=== PATIENT | female | born 1985 | race Caucasian/White ===

== ENCOUNTER 2020-08-15 08:22 | Emergency (ER) | payer MEDICAID ==
--- NOTE | 2020-08-15 08:27 | ED Physician Documentation ---
PD HPI HEENT - Stated complaint Stated Complaint: EAR PX/DIZZY - History obtained from History obtained from: Patient - History of Present Illness Timing - onset: How many days ago (few) Timing - duration: Days Timing - details: Gradual onset, Still present Location: Right ear Associated symptoms: Congestion, Other (had had episodes of vertigo for several weeks or more. Worse with getting up in mornings. The past few days had had worse dizziness with feeling of congestion, right ear fullness, and some sore throat.). No: Fever Recently seen: Not recently seen Review of Systems Constitutional: denies: Fever, Chills Ears: reports: Ear pain, Other (vertigo). denies: Tinnitus/ringing Nose: reports: Rhinorrhea / runny nose, Congestion Throat: reports: Sore throat Respiratory: denies: Cough GI: reports: Nausea. denies: Vomiting, Diarrhea Skin: denies: Rash Neurologic: denies: Focal weakness, Altered mental status, Headache PD PAST MEDICAL HISTORY - Past Medical History Cardiovascular: None Respiratory: None Neuro: None Endocrine/Autoimmune: None - Present Medications Home Medications: Ambulatory Orders Medication Instructions Recorded Confirmed Amoxicillin 500 mg PO TID #18 capsule 08/15/20 Cetirizine [ZyrTEC] 10 mg PO DAILY #30 tablet 08/15/20 Famotidine [Pepcid] 20 mg PO DAILY #30 tablet 08/15/20 Meclizine [Antivert] 25 mg PO Q6H PRN #30 tablet 08/15/20 Sertraline HCl [Zoloft] 100 mg PO 08/15/20 chlordiazePOXIDE [Librium] 25 mg PO Q6H PRN #20 capsule 08/15/20 dexAMETHasone [Decadron] 4 mg PO DAILY #6 tablet 08/15/20 - Allergies Allergies/Adverse Reactions: Allergies Allergy/AdvReac Type Severity Reaction Status Date / Time No Known Drug Allergies Allergy Verified 08/15/20 08:35 - Living Situation Living Situation: reports: With spouse/s.o. Living Arrangement: reports: At home - Social History Does the pt smoke?: No Does the pt drink ETOH?: Yes ETOH Use: Wine, Liquor, Other (daily and states large amount; is going to go into alcohol treatment later next week. ) PD ED PE NORMAL - Vitals Vital signs reviewed: Yes - General General: Alert and oriented X 3, No acute distress, Well developed/nourished - HEENT HEENT: PERRL, EOMI (some nystagmus to the right), Moist mucous membranes, Pharynx benign. No: Ears normal (left is okay; right with fullness and some redness behing TM. ) - Neck Neck: Supple, no meningeal sign - Cardiac Cardiac: RRR, No murmur - Respiratory Respiratory: Clear bilaterally - Abdomen Abdomen: Soft, Non tender - Derm Derm: Normal color, Warm and dry - Neuro Neuro: Alert and oriented X 3, filler leaf cutter long 2-12 intact, No motor deficit, No sensory deficit, Normal speech Eye Opening: Spontaneous Motor: Obeys Commands Verbal: Oriented GCS Score: 15 Results - Vitals Vitals: Oxygen O2 Source Room air - Labs Labs: Laboratory Tests 08/15/20 08/15/20 08/15/20 09:25 09:25 09:25 WBC 5.6 RBC 3.83 L Hgb 13.8 Hct 40.0 MCV 104.4 H MCH 36.0 H MCHC 34.5 RDW 11.7 L Plt Count 140 MPV 9.7 Neut # (Auto) 4.0 Lymph # (Auto) 0.8 L [place] # (Auto) 0.6 Eos # (Auto) 0.1 Baso # (Auto) 0.0 Absolute Nucleated RBC 0.00 Nucleated RBC % 0.0 Sodium 130 L Potassium 3.8 Chloride 90 L Carbon Dioxide 24 Anion Gap 16.0 H BUN 7 Creatinine 0.7 Estimated GFR (MDRD) 95 Glucose 112 H Calcium 9.0 Magnesium 1.5 L Total Bilirubin 0.9 AST 153 H ALT 88 H Alkaline Phosphatase 66 Total Protein 7.7 Albumin 4.6 Globulin 3.1 Albumin/Globulin Ratio 1.5 Lipase 38 Vitamin B12 457 TSH 2.81 PD MEDICAL DECISION MAKING - ED course Complexity details: reviewed results, considered differential (likely labryhnthitis with positional vertigo, but consider alcohol effect with lytes, neuro symptoms. Unlikely structural intracraniial. ), d/w patient Departure - Departure Disposition: 01 Home, Self Care Clinical Impression: Nausea, Alcoholism, Vertigo Otitis media Qualifiers: Otitis media type: serous Chronicity: acute Laterality: right Recurrence: non- recurrent Qualified Code(s): H65.01 - Acute serous otitis media, right ear Labyrinthitis Qualifiers: Laterality: unspecified laterality Qualified Code(s): H83.09 - Labyrinthitis, unspecified ear Condition: Stable Record reviewed to determine appropriate education?: Yes Instructions: ED Otitis Media Serous Adult, ED Vertigo Unspecified Prescriptions: Amoxicillin 500 mg PO TID #18 capsule Meclizine [Antivert] 25 mg PO Q6H PRN #30 tablet PRN Reason: Vertigo dexAMETHasone [Decadron] 4 mg PO DAILY #6 tablet chlordiazePOXIDE [Librium] 25 mg PO Q6H PRN #20 capsule PRN Reason: Alcohol Withdrawal Famotidine [Pepcid] 20 mg PO DAILY #30 tablet Cetirizine [ZyrTEC] 10 mg PO DAILY #30 tablet Comments: Stay well-hydrated. Add an [id number] magnesium supplement for a week or 2. For your ear and inner ear, will try amoxicillin antibiotic for presumed new infection now. Also Decadron steroid for inflammation of the middle and inner ears and cetirizine antihistamine for presumed improper drainage leading to your symptoms. This often can be environmental or allergy related. Meclizine if needed for nausea and dizziness. Famotidine stomach acid reducing medicine daily for the next month. Avoid alcohol. Use Librium every 6-8 hours if needed for withdrawal symptoms. Continue with help for alcohol treatment as planned. Recheck if the ear and dizziness have not improved well over the next several days to week. Discharge Date/Time: 08/15/20 11:06
[2020-08-15] MEDS ORDERED: CHERRY SYRUP 10 ML UDC PO ONE (09:01)
[2020-08-15] MEDS ORDERED: AMOXICILLIN 250 MG CAPSULE PO STA (09:01)
[2020-08-15] MEDS ORDERED: DEXAMETHASONE 10 MG/ML VIAL PO STA (09:01)
[2020-08-15] MEDS ORDERED: ONDANSETRON ODT 4 MG TABLET TL STA (09:01)
[2020-08-15] MEDS ORDERED: CETIRIZINE 10 MG TABLET PO STA (09:01)
[2020-08-15 09:33] LABS: BASOPHILS % (AUTO) 0.7 %; EOSINOPHILS # (AUTO) 0.1 10^3/uL (0.0-0.7); EOSINOPHILS % (AUTO) 1.8 %; HGB - HEMOGLOBIN 13.8 g/dL (12.0-16.0); LYMPHOCYTES # (AUTO) 0.8 10^3/uL (1.5-3.5); LYMPHOCYTES % (AUTO) 14.8 %; MEAN CORPUSCULAR HGB CONC 34.5 g/dL (32.0-36.0); MEAN CORPUSCULAR VOLUME 104.4 fL (81.0-99.0); MEAN PLATELET VOLUME 9.7 fL (7.9-10.8); MONOCYTES # (AUTO) 0.6 10^3/uL (0.0-1.0); MONOCYTES % (AUTO) 10.2 %; NEUTROPHILS % (AUTO) 72.3 %; PLT - PLATELET COUNT 140 10^3/uL (130-450); RED BLOOD COUNT 3.83 10^6/uL (4.20-5.40); RED CELL DISTRIBUTION WIDTH 11.7 % (12.0-15.0); WHITE BLOOD COUNT 5.6 x10^3/uL (4.8-10.8)
[2020-08-15 09:47] LABS: ALBUMIN 4.6 g/dL (3.2-5.5); ALBUMIN/GLOBULIN RATIO 1.5 (1.0-2.2); BILIRUBIN,TOTAL 0.9 mg/dL (0.2-1.0); CREATININE 0.7 mg/dL (0.4-1.0); MAGNESIUM 1.5 mg/dL (1.7-2.8); TOTAL PROTEIN 7.7 g/dL (6.7-8.2)
[2020-08-15 10:03] LABS: THYROID STIMULATING HORMONE 2.81 uIU/mL (0.34-5.60)
[2020-08-15 10:55] VITALS: BP 127/97
== END 2020-08-15 11:06 | disposition home or self-care (01) ==
LOC: ED 08:22
DX: H83.09 Labyrinthitis, unspecified ear (principal); H65.01 Acute serous otitis media, right ear; R11.0 Nausea; F10.20 Alcohol dependence, uncomplicated
CPT/HCPCS: 36415; 80053; 82607; 82652; 83690; 83735; 84207; 84443; 85025; 99284; A9270; Q0162